=== PATIENT | male | born 1940 | race Caucasian/White ===

== ENCOUNTER 2022-07-22 13:32 | Emergency (ER) | payer MEDICARE, MEDICAID ==
[~2022-07-22] VITALS: Ht 162.6 cm; Wt 86.0 kg
[2022-07-22 13:38] VITALS: BP 153/46
[2022-07-22] MEDS ORDERED: KETOROLAC 60MG/2ML VIAL IM ONE (21:00)
== END 2022-07-22 23:02 | disposition home or self-care (01) ==
LOC: ER 13:32
DX: M25.511 Pain in right shoulder (principal); R07.89 Other chest pain; G89.11 Acute pain due to trauma; V49.49XA Driver injured in collision with other motor vehicles in traffic accident, initial encounter; Y93.89 Activity, other specified; Y92.488 Other paved roadways as the place of occurrence of the external cause
CPT/HCPCS: 71045; 73030; 96372; 99284; J1885

== ENCOUNTER 2024-01-06 22:25 | Inpatient (IN) | payer MEDICARE, MEDICAID ==
[~2024-01-06] VITALS: Ht 165.1 cm; Wt 82.4 kg
[2024-01-06 23:30] VITALS: BP 143/61; PULSE 78; RESP 18; TEMP 36.72516; O2SAT 97
[2024-01-07] VITALS: BP 143/61; PULSE 78; RESP 18; TEMP 36.7516
[2024-01-07] MEDS ORDERED: SENNOSIDES/DOCUSATE SOD 8.6/50MG TABLET PO PRN (00:15)
[2024-01-07] MEDS ORDERED: DEXTROSE 50% WATER 50ML SYRINGE IV PRN (00:15)
[2024-01-07] MEDS ORDERED: DOCUSATE SODIUM 100MG CAPSULE PO PRN (00:15)
[2024-01-07] MEDS ORDERED: CLONIDINE 0.1MG TABLET PO PRN (00:15)
[2024-01-07] MEDS: HYDROCODONE/ACETAMINOPHEN 5/325MG TABLET PO PRN (04:23)
[2024-01-07] MEDS: SODIUM CHLORIDE 0.9% 1,000 ML IV SCH (04:27)
[2024-01-07] MEDS: PIPERACILLIN/TAZO 3.375G/50ML 50 ML IV SCH (06:13)
[2024-01-07] MEDS: BLOOD SUGAR DIAGNOSTIC STRIP TEST SCH (06:13)
[2024-01-07] MEDS: INSULIN LISPRO 100 UNITS/ML SUBCUT SCH (06:15)
[2024-01-07 06:18] LABS: CHLORIDE 100 mEq/L (98-107); POTASSIUM 3.5 mEq/L (3.5-5.1); SODIUM 132 mEq/L (136-145)
[2024-01-07 06:19] LABS: BASOPHILS % 0.7 % (0.0-2.0); EOSINOPHILS % 4.4 % (0.0-5.0); HEMATOCRIT. 31.5 % (42.0-52.0); HEMOGLOBIN. 10.5 g/dL (14.0-18.0); LYMPHOCYTES % 14.7 % (20.0-50.0); MEAN CORPUSCULAR HEMOGLOBIN 30.5 pg (28.0-32.0); MEAN CORPUSCULAR HGB CONC 33.3 g/dL (31.0-37.0); MEAN CORPUSCULAR VOLUME 91.6 fL (80.0-94.0); MEAN PLATELET VOLUME 8.5 fl (7.4-10.4); MONOCYTES % 6.1 % (2.0-8.0); NEUTROPHILS % 74.1 % (40.0-76.0); PLATELET 376 x1000/uL (130-400); RED BLOOD CELL COUNT 3.43 mill/uL (4.7-6.1); RED CELL DISTRIBUTION WIDTH 14.1 % (11.6-14.6); WHITE BLOOD COUNT 10.9 x1000/uL (4.5-11.0)
[2024-01-07 06:21] LABS: CARBON DIOXIDE 23 mEq/L (21-32)
[2024-01-07 06:22] LABS: CALCIUM 8.9 mg/dL (8.7-10.4)
[2024-01-07 06:26] LABS: CREATININE 0.8 mg/dL (0.6-1.3); GLUCOSE 68 mg/dL (70-105)
[2024-01-07 06:27] LABS: UREA NITROGEN BLOOD 8 mg/dL (9-23)
[2024-01-07 06:28] LABS: ALANINE AMINOTRANSFERASE 48 IU/L (10-49); ALBUMIN 3.5 g/dL (3.2-4.8); ASPARTATE AMINOTRANSFERASE 35 IU/L (<34)
[2024-01-07 06:29] LABS: BILIRUBIN TOTAL 0.3 mg/dL (0.1-1.0); PREALBUMIN 12.2 mg/dl (10.0-40.0); PROTEIN TOTAL 6.4 g/dL (6.0-8.3)
[2024-01-07 08:00] VITALS: BP 148/68; PULSE 86; RESP 18; TEMP 36.28068; O2SAT 97
[2024-01-07] MEDS: ASPIRIN 81MG TABLET PO SCH (08:49)
[2024-01-07] MEDS: POLYETHYLENE GLYCOL 3350 (17GM) 1 DOSE PACK PO SCH (08:49)
[2024-01-07] MEDS: CLOPIDOGREL 75MG TABLET PO SCH (08:49)
[2024-01-07] MEDS: NYSTATIN POWDER 15GM TOP SCH (09:00)
[2024-01-07] MEDS: INSULIN GLARGINE 100 UNITS/ML SUBCUT SCH (09:24)
[2024-01-07] MEDS ORDERED: NALOXONE HCL 0.4MG/ML VIAL IV PRN (09:30)
[2024-01-07 20:00] VITALS: BP 137/54; PULSE 81; RESP 16; TEMP 37.05852; O2SAT 95
[2024-01-07] MEDS: ATORVASTATIN CALCIUM 40MG TABLET PO SCH (21:35)
[2024-01-08] VITALS: BP 129/56; PULSE 80; RESP 17; TEMP 36.83628; O2SAT 97
[2024-01-08 07:46] LABS: BASOPHILS % 0.9 % (0.0-2.0); EOSINOPHILS % 5.6 % (0.0-5.0); HEMATOCRIT. 31.7 % (42.0-52.0); HEMOGLOBIN. 10.3 g/dL (14.0-18.0); LYMPHOCYTES % 11.3 % (20.0-50.0); MEAN CORPUSCULAR HEMOGLOBIN 29.6 pg (28.0-32.0); MEAN CORPUSCULAR HGB CONC 32.5 g/dL (31.0-37.0); MEAN CORPUSCULAR VOLUME 91.3 fL (80.0-94.0); MEAN PLATELET VOLUME 8.1 fl (7.4-10.4); MONOCYTES % 6.3 % (2.0-8.0); NEUTROPHILS % 75.9 % (40.0-76.0); PLATELET 369 x1000/uL (130-400); RED BLOOD CELL COUNT 3.47 mill/uL (4.7-6.1)
[2024-01-08 07:57] LABS: CHLORIDE 100 mEq/L (98-107); POTASSIUM 3.8 mEq/L (3.5-5.1); SODIUM 130 mEq/L (136-145)
[2024-01-08 07:59] LABS: CARBON DIOXIDE 24 mEq/L (21-32)
[2024-01-08 08:00] LABS: CALCIUM 8.6 mg/dL (8.7-10.4)
[2024-01-08 08:04] LABS: CREATININE 0.9 mg/dL (0.6-1.3); GLUCOSE 147 mg/dL (70-105); IRON 24 ug/dL (65-175)
[2024-01-08 08:05] LABS: UREA NITROGEN BLOOD 7 mg/dL (9-23)
[2024-01-08 08:06] LABS: ALANINE AMINOTRANSFERASE 42 IU/L (10-49); ALBUMIN 3.5 g/dL (3.2-4.8); ASPARTATE AMINOTRANSFERASE 31 IU/L (<34); PROTEIN TOTAL 6.2 g/dL (6.0-8.3)
[2024-01-08 08:07] LABS: BILIRUBIN TOTAL 0.3 mg/dL (0.1-1.0); THYROID STIMULATING HORMONE 2.96 uIU/mL (0.55-4.78); TOTAL IRON BINDING CAPACITY 532 ug/dl (250-425)
[2024-01-08 08:14] LABS: FERRITIN 209 ng/mL (22-322); VITAMIN B12 SERUM 649 pg/mL (211-911)
[2024-01-08] MEDS: ACETAMINOPHEN 325MG TABLET PO PRN (11:37)
[2024-01-08] MEDS: FERROUS SULFATE 325MG TABLET PO SCH (16:13)
[2024-01-08] MEDS: ASCORBIC ACID 500 MG TABLET PO SCH (16:13)
[2024-01-09 08:00] VITALS: BP 113/51; PULSE 91; RESP 19; TEMP 36.83628; O2SAT 99
[2024-01-09] MEDS: ERGOCALCIFEROL 50000UNITS CAPSULE PO SCH (17:55)
[2024-01-09 20:00] VITALS: BP 136/66; PULSE 79; RESP 16; TEMP 36.28068; O2SAT 100
[2024-01-09] MEDS: INSULIN GLARGINE 100 UNITS/ML SUBCUT SCH (21:21)
[2024-01-10 07:22] LABS: CALCIUM 8.5 mg/dL (8.7-10.4); CHLORIDE 103 mEq/L (98-107); POTASSIUM 3.7 mEq/L (3.5-5.1); SODIUM 132 mEq/L (136-145)
[2024-01-10 07:23] LABS: CARBON DIOXIDE 25 mEq/L (21-32)
[2024-01-10 07:25] LABS: BASOPHILS % 0.8 % (0.0-2.0); EOSINOPHILS % 6.4 % (0.0-5.0); HEMATOCRIT. 30.9 % (42.0-52.0); HEMOGLOBIN. 10.3 g/dL (14.0-18.0); LYMPHOCYTES % 12.9 % (20.0-50.0); MEAN CORPUSCULAR HEMOGLOBIN 30.5 pg (28.0-32.0); MEAN CORPUSCULAR HGB CONC 33.2 g/dL (31.0-37.0); MEAN CORPUSCULAR VOLUME 91.6 fL (80.0-94.0); MEAN PLATELET VOLUME 8.4 fl (7.4-10.4); MONOCYTES % 6.9 % (2.0-8.0); PLATELET 354 x1000/uL (130-400); RED BLOOD CELL COUNT 3.38 mill/uL (4.7-6.1); WHITE BLOOD COUNT 9.5 x1000/uL (4.5-11.0)
[2024-01-10 07:28] LABS: CREATININE 0.9 mg/dL (0.6-1.3); GLUCOSE 88 mg/dL (70-105); UREA NITROGEN BLOOD 7 mg/dL (9-23)
[2024-01-10 08:00] VITALS: BP 117/66; PULSE 77; RESP 20; TEMP 36.114; O2SAT 99
[2024-01-10 20:00] VITALS: BP 131/62; PULSE 78; RESP 18; TEMP 36.22512; O2SAT 99
[2024-01-11 08:00] VITALS: BP 141/57; PULSE 76; RESP 20; TEMP 36.3918; O2SAT 100
[2024-01-11 20:00] VITALS: BP 132/64; PULSE 78; RESP 20; TEMP 36.6696; O2SAT 98
[2024-01-12 06:23] LABS: CHLORIDE 104 mEq/L (98-107); POTASSIUM 3.8 mEq/L (3.5-5.1); SODIUM 133 mEq/L (136-145)
[2024-01-12 06:24] LABS: CALCIUM 8.3 mg/dL (8.7-10.4); CARBON DIOXIDE 22 mEq/L (21-32)
[2024-01-12 06:26] LABS: BASOPHILS % 1.2 % (0.0-2.0); EOSINOPHILS % 6.5 % (0.0-5.0); HEMATOCRIT. 29.8 % (42.0-52.0); HEMOGLOBIN. 9.8 g/dL (14.0-18.0); LYMPHOCYTES % 14.8 % (20.0-50.0); MEAN CORPUSCULAR HEMOGLOBIN 29.8 pg (28.0-32.0); MEAN CORPUSCULAR HGB CONC 32.8 g/dL (31.0-37.0); MEAN CORPUSCULAR VOLUME 90.9 fL (80.0-94.0); MEAN PLATELET VOLUME 8.5 fl (7.4-10.4); MONOCYTES % 6.3 % (2.0-8.0); NEUTROPHILS % 71.2 % (40.0-76.0); PLATELET 338 x1000/uL (130-400); RED BLOOD CELL COUNT 3.28 mill/uL (4.7-6.1); RED CELL DISTRIBUTION WIDTH 14.4 % (11.6-14.6); WHITE BLOOD COUNT 8.6 x1000/uL (4.5-11.0)
[2024-01-12 06:29] LABS: CREATININE 0.9 mg/dL (0.6-1.3); GLUCOSE 105 mg/dL (70-105); UREA NITROGEN BLOOD 6 mg/dL (9-23)
[2024-01-12 06:31] LABS: ALANINE AMINOTRANSFERASE 38 IU/L (10-49); ALBUMIN 3.3 g/dL (3.2-4.8); ASPARTATE AMINOTRANSFERASE 29 IU/L (<34); BILIRUBIN TOTAL 0.3 mg/dL (0.1-1.0); PROTEIN TOTAL 6.2 g/dL (6.0-8.3)
[2024-01-12 08:00] VITALS: BP 139/61; PULSE 86; RESP 18; TEMP 36.50292; O2SAT 99
[2024-01-12 20:00] VITALS: BP 153/64; PULSE 78; RESP 18; TEMP 36.28068; O2SAT 100
[2024-01-13 08:00] VITALS: BP 102/44; PULSE 91; RESP 17; TEMP 36.28068; O2SAT 100
[2024-01-13] MEDS: PANTOPRAZOLE 40MG DR TABLET PO SCH (11:41)
[2024-01-13] MEDS ORDERED: NALOXONE HCL 0.4MG/ML VIAL IV PRN (15:15)
[2024-01-13] MEDS: ONDANSETRON HCL 4MG/2ML INJ IV PRN (16:13)
[2024-01-13 20:00] VITALS: BP 153/64; PULSE 83; RESP 18; TEMP 36.28068; O2SAT 100
[2024-01-14 08:00] VITALS: BP 127/70; PULSE 86; RESP 18; TEMP 36.44736; O2SAT 95
[2024-01-14 20:00] VITALS: BP 109/45; PULSE 80; RESP 19; TEMP 36.61404; O2SAT 96
[2024-01-15 07:57] VITALS: BP 121/52; PULSE 84; RESP 18; TEMP 36.33624; O2SAT 100
[2024-01-16] MEDS: HYDROCODONE/ACETAMINOPHEN 5/325MG TABLET PO PRN (07:00)
[2024-01-16 08:00] VITALS: BP 121/59; PULSE 87; RESP 20; TEMP 36.50292; O2SAT 99
[2024-01-16 20:00] VITALS: BP 119/62; PULSE 74; RESP 16; TEMP 36.78072; O2SAT 96
[2024-01-17 08:00] VITALS: BP 118/57; PULSE 87; RESP 19; TEMP 36.55848; O2SAT 99
[2024-01-17 20:00] VITALS: BP 140/70; PULSE 76; RESP 16; TEMP 36.16956; O2SAT 98
[2024-01-18 08:00] VITALS: BP 130/62; PULSE 73; RESP 18; TEMP 36.72516; O2SAT 97
[2024-01-18 20:00] VITALS: BP 119/5; PULSE 79; RESP 19; TEMP 37.72524; O2SAT 98
[2024-01-19 08:00] VITALS: BP 135/63; PULSE 81; RESP 18; TEMP 36.16956; O2SAT 98
[2024-01-19] MEDS: FAMOTIDINE 20MG TABLET PO SCH (08:39)
[2024-01-19 20:00] VITALS: BP 126/54; PULSE 18; RESP 18; TEMP 36.3918; O2SAT 92
[2024-01-20 06:33] LABS: CHLORIDE 100 mEq/L (98-107); SODIUM 130 mEq/L (136-145)
[2024-01-20 06:35] LABS: CALCIUM 8.7 mg/dL (8.7-10.4)
[2024-01-20 06:39] LABS: GLUCOSE 229 mg/dL (70-105); UREA NITROGEN BLOOD 9 mg/dL (9-23)
[2024-01-20 06:41] LABS: ALANINE AMINOTRANSFERASE 31 IU/L (10-49); ALBUMIN 3.6 g/dL (3.2-4.8); ASPARTATE AMINOTRANSFERASE 22 IU/L (<34); BILIRUBIN TOTAL 0.4 mg/dL (0.1-1.0)
[2024-01-20 06:42] LABS: PROTEIN TOTAL 6.3 g/dL (6.0-8.3)
[2024-01-20 06:47] LABS: CARBON DIOXIDE 23 mEq/L (21-32)
[2024-01-20 06:49] LABS: BASOPHILS % 1.1 % (0.0-2.0); HEMOGLOBIN. 10.2 g/dL (14.0-18.0); LYMPHOCYTES % 16.2 % (20.0-50.0); MEAN CORPUSCULAR HEMOGLOBIN 29.9 pg (28.0-32.0); MEAN CORPUSCULAR VOLUME 90.6 fL (80.0-94.0); MEAN PLATELET VOLUME 8.7 fl (7.4-10.4); MONOCYTES % 6.5 % (2.0-8.0); NEUTROPHILS % 66.2 % (40.0-76.0); PLATELET 272 x1000/uL (130-400); RED BLOOD CELL COUNT 3.42 mill/uL (4.7-6.1); RED CELL DISTRIBUTION WIDTH 14.6 % (11.6-14.6); WHITE BLOOD COUNT 7.3 x1000/uL (4.5-11.0)
[2024-01-20 08:00] VITALS: BP 131/55; PULSE 79; RESP 18; TEMP 36.6696; O2SAT 98
[2024-01-20 20:00] VITALS: BP 130/59; PULSE 74; RESP 18; TEMP 36.61404; O2SAT 99
[2024-01-21 08:00] VITALS: BP 140/58; PULSE 74; RESP 18; TEMP 36.22512; O2SAT 100
[2024-01-21] MEDS: FAMOTIDINE 20MG TABLET PO SCH (08:45)
[2024-01-21 13:57] VITALS: BP 140/58; PULSE 74; TEMP 97.2; O2SAT 100
[2024-01-21] MEDS ORDERED: AMOX1TAB16 MT (14:46)
[2024-01-21 20:00] VITALS: BP 141/41; PULSE 73; RESP 20; TEMP 36.50292; O2SAT 99
[2024-01-22 08:00] VITALS: BP 142/76; PULSE 69; RESP 18; TEMP 36.61404; O2SAT 95
[2024-01-22 10:58] VITALS: BP 142/76; PULSE 69; TEMP 97.9; O2SAT 95
== END 2024-01-22 15:23 | disposition home health service (06) | DRG 299 ==
PROVIDERS: ADMIT Physical Medicine & Rehabilitation Spinal Cord Injury Medicine; ATTEND Internal Medicine
DX: E11.52 Type 2 diabetes mellitus with diabetic peripheral angiopathy with gangrene (principal); A41.9 Sepsis, unspecified organism; E87.1 Hypo-osmolality and hyponatremia; L02.611 Cutaneous abscess of right foot; L03.115 Cellulitis of right lower limb; I70.261 Atherosclerosis of native arteries of extremities with gangrene, right leg; M86.8X7 Other osteomyelitis, ankle and foot; D64.9 Anemia, unspecified; E11.65 Type 2 diabetes mellitus with hyperglycemia; E11.42 Type 2 diabetes mellitus with diabetic polyneuropathy; F39 Unspecified mood [affective] disorder; I10 Essential (primary) hypertension; R13.10 Dysphagia, unspecified; E55.9 Vitamin D deficiency, unspecified; E66.9 Obesity, unspecified; S91.101A Unspecified open wound of right great toe without damage to nail, initial encounter; X58.XXXA Exposure to other specified factors, initial encounter; D50.9 Iron deficiency anemia, unspecified; E11.69 Type 2 diabetes mellitus with other specified complication; R26.9 Unspecified abnormalities of gait and mobility; Z79.2 Long term (current) use of antibiotics; K59.00 Constipation, unspecified; Z79.02 Long term (current) use of antithrombotics/antiplatelets; Z79.4 Long term (current) use of insulin; Z79.82 Long term (current) use of aspirin; Z91.013 Allergy to seafood; Z91.81 History of falling; Z88.1 Allergy status to other antibiotic agents; Z68.30 Body mass index [BMI] 30.0-30.9, adult; Y93.89 Activity, other specified; Y92.89 Other specified places as the place of occurrence of the external cause; Y99.8 Other external cause status
CPT/HCPCS: 36415; 74230; 80048; 80053; 82306; 82607; 82728; 82746; 82962; 83036; 83540; 83550; 84134; 84443; 85025; 92523; 92610; 92611; 93970; 97110; 97116; 97150; 97162; 97166; 97530; 97535; 97542; J1815; J2405; J2543; J7030